=== PATIENT | male | born 1975 | race Hispanic/Latino ===

== ENCOUNTER → 2021-04-16 | Outpatient (CLI) | payer OTHER ==
--- NOTE | 2021-04-16 11:31 | PFTRPT ---
Site: [facility], [address] [place], [address] ID: [id number] Name: ERNESTO MERA Visit Date: 04/16/2021 Second ID: [id number] Referring Doctor: Evans Manning Reviewing Doctor: Bill Dickerson MD Range Ecologist: Anthony LICONA RRT Age: 45 : 1975 Sex: Male Race: Height: 66.00 Inches Weight: 200.00 Lbs BSA: 2.00 Order IDs: [id number] Requested Test(s): <RESP-PFT.PFT B/A> Diagnosis: WHEEZING test meet the ATS standards for acceptability and repeatability. Pt was given four puffs of albuterol for post bronchodilator. Review Status: Not Reviewed Pre-Bronch Post-Bronch Pred Actual %Pred Actual %Chng SPIROMETRY FVC (L) 4.43 3.50 79 3.50 FEV1 (L) 3.50 3.06 87 3.20 4 FEV1/FVC (%) 80 88 109 92 4 FEF 25% (L/sec) 7.69 9.29 120 9.77 5 FEF 50% (L/sec) 5.31 6.18 116 7.17 15 FEF 75% (L/sec) 1.71 1.84 107 2.53 37 FEF 25-75% (L/sec) 3.47 4.63 133 5.62 21 FEF Max (L/sec) 9.05 9.42 104 9.86 4 FIVC (L) 3.52 3.42 -2 FIF 50% (L/sec) 5.06 4.92 97 4.18 -15 FIF Max (L/sec) 5.32 4.77 -10 MVV (L/min) 143 113 79 Expiratory Time (sec) 6.86 6.64 -3 Back Extrap Vol (L) 0.13 0.12 -6 Time To FEFmax (sec) 0.083 0.080 -4 LUNG VOLUMES SVC (L) 4.39 3.39 77 IC (L) 3.10 3.02 97 ERV (L) 1.29 0.37 28 TGV (L) 3.04 2.23 73 RV (Pleth) (L) 1.75 1.86 106 TLC (Pleth) (L) 6.14 5.25 85 RV/TLC (Pleth) (%) 29 35 122 DIFFUSION DLCOunc (ml/min/mmHg) 29.77 29.87 100 DL/VA (ml/min/mmHg/L) 4.85 6.13 126 VA (L) 6.14 4.88 79 BHT (sec) 10.00 IVC (L) 3.29 TLC (SB) (L) 5.03 AIRWAYS RESISTANCE Raw (cmH2O/L/s) 1.45 0.84 58 Gaw (L/s/cmH2O) 1.03 1.20 116 sRaw (cmH2O*s) 4.76 1.86 39 sGaw (1/cmH2O*s) 0.20 0.54 271
--- NOTE | 2021-04-17 09:52 | ECHO ---
ECHOCARDIOGRAM DATE OF PROCEDURE: 04/16/2021 Age: 45 Gender: Male Height: 66 inches Weight: 203 pounds Body Surface Area: 2.01 m2 PATIENT LOCATION: Outpatient. REFERRING PROVIDER: BHAVIK Novak. INDICATION: Shortness of breath. MEASUREMENTS: 2D Measurements: RV - 3.8 cm LV 4.2 cm Septum 1.2 cm Posterior wall 1.2 cm Aortic Root 3.6 cm LA 4.1 cm LVEF 75% Doppler Measurements: AV 1.28 m/s LVOT - 0.96 m/s LVOT diameter 2.0 cm MV-E 91, A 73, EA ratio 1.3 Early mitral deceleration time 180 msec E prime medial 6, A prime medial 8.7, E prime lateral 8.7 Average E/E prime ratio 12.4/PCWP 17.3 mmHg PV - 0.8 m/s Pulmonary artery acceleration time 130 msec PASP 24 mmHg IVC not visualized COMMENTS: Normal sinus rhythm without intraventricular conduction disturbance. Somewhat technically challenging study in light of the patient's body habitus, but diagnostically useful information was still obtained. M-mode and 2-dimensional echocardiography was performed with pulse, continuous wave, color flow, and tissue Doppler studies. Borderline concentric left ventricular hypertrophy with hyperkinetic wall motion. Mildly dilated left atrium with grade 2 LV diastolic dysfunction but current estimated mean left atrial pressure upper limits of normal. Normal right heart chamber sizes, wall motion, and estimated pulmonary arterial pressure. IVC size could not be visualized, but it is unlikely to be dilated in light of the normal estimated pulmonary arterial pressure. Normal aortic dimensions. Normal appearing and functioning aortic valve. Slightly thickened mitral annulus but normal leaflet thickness and excursion with no posterior systolic buckling. Mild mitral insufficiency. Normal appearing tricuspid valve with trace insufficiency. No apparent intracardiac mass or pericardial effusion.
== END ==
LOC: M CARPUL 10:12
PROVIDERS: ATTEND Physician Assistant
DX: R06.02 Shortness of breath (principal)

== ENCOUNTER 2025-05-08 15:28 | Emergency (ER) | payer OTHER ==
[~2025-05-08] VITALS: Ht 167.6 cm; Wt 86.4 kg
[2025-05-08 15:40] VITALS: TEMP 97.2
[2025-05-08 16:01] LABS: BASO # 0.1 10^3/uL (0.0-0.2); BASO % 0.8 % (0.0-1.0); EOS # 0.1 10^3/uL (0.0-0.5); EOS % 0.9 % (0.0-3.0); LYMPH # 2.1 10^3/uL (1.5-5.0); LYMPH % 24.7 % (24.0-44.0); MONO # 0.7 10^3/uL (0.0-0.8); MONO % 7.8 % (2.0-8.0); NEUTROPHILS # 5.6 10^3/uL (1.5-8.5); NEUTROPHILS % 65.2 % (36.0-66.0); PLATELET COUNT, AUTOMATED 322 10^3/uL (150-450)
[2025-05-08 16:23] LABS: INR 0.97
[2025-05-08 16:25] LABS: ALT/SGPT 24 U/L (7.0-40); AST/SGOT 21 U/L (<34); CALCIUM LEVEL 9.4 MG/DL (8.5-10.1); CARBON DIOXIDE LEVEL 28 MMOL/L (20-31); CHLORIDE LEVEL 101 MMOL/L (98-107); CK-MB VALUE MASS 2.5 NG/ML (<3.6); CREATININE FOR GFR 0.86 MG/DL (0.70-1.30); GLOMERULAR FILTRATION RATE > 90.0 (>56); POTASSIUM SERUM 4.0 MMOL/L (3.5-5.1); SODIUM LEVEL 138 MMOL/L (136-145)
[2025-05-08 16:28] LABS: CPK CREATINE PHOSPHOKINASE 125 U/L (46-171); MB/CK RELATIVE INDEX 2.00 (< OR =4)
[2025-05-08] MEDS ORDERED: ISOVUE-370 76% 100 ML VIAL As Ordered ONE (16:34)
[2025-05-08] MEDS ORDERED: LIDOCAINE 2% 5 ML JELLY UROJET TOP ONE (17:10)
[2025-05-08 17:24] LABS: CK-MB VALUE MASS 2.1 NG/ML (<3.6)
[2025-05-08 17:26] LABS: CPK CREATINE PHOSPHOKINASE 99.0 U/L (46-171); MB/CK RELATIVE INDEX 2.12 (< OR =4)
[2025-05-08 19:25] LABS: CK-MB VALUE MASS 2.1 NG/ML (<3.6)
[2025-05-08 19:26] LABS: CPK CREATINE PHOSPHOKINASE 100.0 U/L (46-171); MB/CK RELATIVE INDEX 2.1 (< OR =4)
[2025-05-08 19:45] VITALS: BP 151/91; O2SAT 97
== END 2025-05-08 19:56 | disposition home or self-care (01) ==
LOC: EDBD 15:28 → M ED 15:28
DX: R07.9 Chest pain, unspecified (principal); I10 Essential (primary) hypertension
CPT/HCPCS: 36415; 71045; 71275; 80048; 80076; 82550; 82553; 83690; 84484; 85025; 85610; 93005; 93041; 94760; 99285; Q9967